=== PATIENT | female | born 1955 | race Caucasian/White ===

== ENCOUNTER 2021-01-08 11:12 | Emergency (ER) | payer OTHER ==
[~2021-01-08 11:12] MED LIST: FLEXERIL 10 MG10 MG PO; NORCO 5-325 TA1 EACH PO
== END 2021-01-08 14:07 | disposition home or self-care (01) ==
LOC: ER1 11:12
DX: S39.012A Strain of muscle, fascia and tendon of lower back, initial encounter (principal); Z88.0 Allergy status to penicillin; Z88.1 Allergy status to other antibiotic agents; Z88.5 Allergy status to narcotic agent; Z88.8 Allergy status to other drugs, medicaments and biological substances; Z91.040 Latex allergy status; V49.40XA Driver injured in collision with unspecified motor vehicles in traffic accident, initial encounter; Y92.410 Unspecified street and highway as the place of occurrence of the external cause
CPT/HCPCS: 72131; 96372; 99284; J1885

== ENCOUNTER → 2021-03-02 | Outpatient (CLI) | payer OTHER ==
[~2021-03-02] VITALS: Ht 165.1 cm; Wt 112.9 kg
== END ==
LOC: EROP 15:09
DX: U07.1 COVID-19 (principal)
CPT/HCPCS: 96365